=== PATIENT | female | born 1945 | race Caucasian/White ===

== ENCOUNTER 2017-04-07 15:08 | Inpatient (IN) ==
[2017-04-07] MEDS ORDERED: HYDROmorphone 2 MG/1 ML VIAL IV STA ×2 (16:05→17:33)
[2017-04-07] MEDS ORDERED: ONDANSETRON 4 MG/2 ML VIAL IV STA ×2 (16:05→17:33)
[2017-04-07] MEDS ORDERED: SODIUM CHLORIDE 0.9% 500 ML IV STA (16:05)
--- NOTE | 2017-04-07 16:42 | CT Report ---
Referring physician: Bulmaro Azar Exam: CT brain without contrast Date: 04/07/2017 Comparison: 08/18/2016 Reason: Headache Technique: Axial images of the head were obtained without the use of contrast. Total DLP was 1136.90 mGy*cm. Findings: No hydrocephalus or midline shift is present. There is no evidence of an acute infarction, recent intracranial hemorrhage or abnormal mass effect. Persistent cerebral atrophy and diffuse cerebral hypodensities. Benign hyperostosis frontalis interna. The mastoid air cells and visualized paranasal sinuses are clear. Impression: No acute intracranial abnormality is identified. Persistent atrophy and microvascular disease with benign hyperostosis frontalis interna. The CT exam was performed using one or more of the following dose reduction techniques: Automated exposure control and adjustment of the mA and/or kV according to patient size. PROCEDURE INTERPRETED AT [facility] DEPARTMENT OF RADIOLOGY Final Report Signed by: Dr. Savannah De Jesus
--- NOTE | 2017-04-07 16:46 | CT Report ---
Exam: CT cervical spine without contrast Date: 04/07/2017 Comparison: 08/07/2011 Reason: Neck pain, fall, neck trauma Technique: Axial images of the cervical spine were obtained without the use of contrast. Sagittal and coronal reformatted images were also acquired. Total DLP is 356.90 mGy*cm. Findings: The alignment the cervical spine is unremarkable with no fracture, dislocation, or definite spinal cord pathology. No acute findings at the lung apices. Sclerosis with osteophytes. At C2-C3, no neuroforaminal narrowing or spinal canal stenosis is identified. At C3-C4, no disc protrusion or spinal stenosis. Minimal bilateral foraminal stenosis. At C4-C5, no disc protrusion or spinal stenosis. Minimal right and moderate left foraminal stenosis. At C5-C6, no disc protrusion or spinal stenosis. Minimal bilateral foraminal stenosis. At C6-C7, osteophyte/disc complex which contacts the thecal sac. No spinal stenosis or foraminal stenosis. At C7-T1, no neuroforaminal narrowing or spinal canal stenosis is identified. Impression: No acute fracture identified. Multilevel DDD as above noted. This CT exam was performed using one or more of the following dose reduction techniques: Automatic exposure control, adjustment of the MA and/or KV according to patient size, or use of iterative reconstruction technique. PROCEDURE INTERPRETED AT [facility] DEPARTMENT OF RADIOLOGY Final Report Signed by: Dr. Savannah De Jesus
--- NOTE | 2017-04-07 16:52 | Emergency Department Note ---
Lorena Newby Rolonda, am scribing for, and in the presence of, Bulmaro Azar MD 16:42. Doe Newby Charles R, MD, personally performed the services described in this documentation, ascribed by Nela Carrillo in my presence, and it is both accurate and complete 652 . Arrival - Arrival ED Nursing Triage Note: pt reports she fell about 1100 this morning and was on floor for about 20 minutes before she was able to get up. pt reports she had pain and a small knot on her hip but that the right hip has continued to swell and she is having some pain in her right neck and has started having some blurry vision. denies loc. pt takes plavix. c collar placed on pt in triage. Mode of Arrival: Wheelchair Limitations: No Limitations Source: Patient, Old Records Reviewed, RN Notes Reviewed - History of Present Illness Onset (ago): hour(s) Consistency: constant Severity: moderate Severity scale (1-10): 4 <Bulmaro Azar - Last Filed: 04/07/17 17:22> <Haris Banks - Last Filed: 04/07/17 17:48> - Arrival Chief Complaint: Fall Stated Complaint: FALL,KNOT ON RIGHT HIP, VISION BLURRY Time Seen by Provider: 04/07/17 15:55 - History of Present Illness HPI Narrative: Pt is a 72 y/o female who presents to the ED via wheelchair with c/o taking a fall with an onset of this morning. Pt has a PMHx of Back/Neck problems and Musculoskeletal problems. Pt was placed in c-collar at time of triage. She states that she was ambulating to the living room using her walking cane, as usual, when she lost her balance resulting in her falling hitting the left side of her head. Pt confirms that she is on pain medication, has right hip pain that radiates to the groin due to falling, and neck pain but denies arm and head pain. No other pain/complaint in ED. (Nela Carrillo) Pt is a 72 y/o female who presents to the ED via wheelchair with c/o taking a fall with an onset of this morning. Pt has a PMHx of Back/Neck problems and Musculoskeletal problems. Pt was placed in c-collar at time of triage. She states that she was ambulating to the living room using her walking cane, as usual, when she lost her balance resulting in her falling hitting the left side of her head. Pt confirms that she is on pain medication, has right hip pain that radiates to the groin due to falling, and neck pain but denies arm and head pain. No other pain/complaint in ED. (Bulmaro Azar) Allergies/Adverse Reactions: Allergies Allergy/AdvReac Type Severity Reaction Status Date / Time Milk Containing Products Allergy Severe MAKES Verified 08/18/16 15:18 PATIENT SWELL Shrimp Allergy Severe VOMITTING Verified 08/18/16 15:18 Sulfa (Sulfonamide Allergy Intermediate RASH Verified 08/18/16 15:18 Antibiotics) sulfamethoxazole Allergy Intermediate RASH Verified 08/18/16 15:18 [From Bactrim] trimethoprim [From Bactrim] Allergy Intermediate RASH Verified 08/18/16 15:18 codeine AdvReac Intermediate Confusion Verified 08/18/16 15:18 Home Medications: Home Medications Medication Instructions Recorded Confirmed Type ALPRAZolam [Xanax] 0.5 mg PO TID 03/13/15 08/18/16 History Atorvastatin [Lipitor] 10 mg PO DAILY 03/13/15 08/18/16 History Clopidogrel [Plavix] 75 mg PO DAILY 03/13/15 08/18/16 History Dicyclomine Cap/Tab [Bentyl 10 mg PO QID 03/13/15 08/18/16 History Cap/Tab] Duloxetine HCl [Cymbalta] 60 mg PO BID 03/13/15 08/18/16 History Esomeprazole Magnesium [Nexium] 40 mg PO DAILY 03/13/15 08/18/16 History Furosemide Tab [Lasix Tab] 80 mg PO DAILY PRN 03/13/15 08/18/16 History Gabapentin Cap/Tab [Neurontin 600 mg PO QID 03/13/15 08/18/16 History Cap/Tab] Levothyroxine Tab [Synthroid Tab] 150 mcg PO DAILY@0700 03/13/15 08/18/16 History Losartan Potassium 50 mg PO DAILY 03/13/15 08/18/16 History Meclizine [Antivert] 25 mg PO TID 03/13/15 08/18/16 History Methocarbamol Tab [Robaxin Tab] 600 mg PO TID PRN 03/13/15 08/18/16 History Metoclopramide Tab [Reglan Tab] 10 mg PO Q6HR 03/13/15 08/18/16 History OXcarbazepine [Trileptal] 300 mg PO BID 03/13/15 08/18/16 History Tolterodine LA [Detrol LA] 4 mg PO DAILY PRN 03/13/15 08/18/16 History Zolpidem [Ambien] 10 mg PO BEDTIME 03/13/15 08/18/16 History oxyCODONE ER [OxyCONTIN] 20 mg PO Q12HR 03/13/15 08/18/16 History rOPINIRole [Requip] 0.5 mg PO BEDTIME PRN 03/13/15 08/18/16 History Cyanocobalamin Inj [Vitamin B12 1,000 mcg IM Q30D 05/01/16 08/18/16 History Inj] Review of System - Review of System 12 point system: reviewed and no additional remarkable complaints except as stated - Review of System Constitutional: Absent: chills, fever Respiratory: Absent: cough, respiratory distress Cardiovascular: Absent: chest pain Musculoskeletal: Present: neck pain, other (right hip pain that radiates down groin). Absent: arm pain, back pain Neurological: Absent: headache <Bulmaro Azar R - Last Filed: 04/07/17 17:22> Medical,Surgical,& Family Hx - Medical History Cardio: History of: Cardiac Dysrhythmia (LOW HR HX), Hypertension Psychological: History of: Anxiety Disorders, Depression Neurology: History of: Cerebral Hemorrhage, Migraine, TIA (2002) No history of: Seizures HEENT: History of: Eye Problem (Wears glasses), HEENT Problems (REMOVAL OF SKIN CA) Endocrine: History of: Dyslipidemia, Thyroid Disorder (Hypothyroid) Rheumatology: History of;: Rheumatological Problems Renal: History of: Renal Problems (Takes Detrol PRN) Gastrointestinal: History of: Diverticulitis/ Diverticulosis, GERD, Pancreatitis (2007), Polyps, GI Problems (DYSPHASIA/ IBS) Musculoskeletal: History of: Back/Neck Problems (perm nerve damage 2 disc in back; stenosis of spine; disease of facets), Degenerative Disk Disease, Herniated Disk, Osteoporosis, Musculoskeletal Problems (trigemenal neuralgia rt side of face 2003/ COSTOCHONDRITIS HX) Hematology: History of: Anemia Reproductive: History of: Breast Cancer (Adenocarcinoma with mastectomy bilaterally) Other: History of: Cancer (RT BREAST W MASTECTOMY 1969/ LEFT SIMPLE MASTECTOMY 1970), MRSA, Miscellaneous Medical Problems (HX OF CELLULITIS) No history of: Anesthesia Reactions - Surgical History Cardiac Surgeries: Sugical HX of: Cardiac Catheterization (Many years ago), Vascular Access Devices (MEDIPORT) Neurologic Surgeries: Surgical HX of: Cerebral Hemorrhage HEENT Surgeries: Surgical HX of: Eye Surgery (Catracts removed bilaterally) Abdominal Surgeries: Surgical HX of: Abdominal Surgery, Appendectomy, Cholecystectomy, Colonoscopy, EGD Reproductive Surgeries: Surgical HX of;: Breast Surgery (Mastectomy), Gynecologic Surgery, Hysterectomy Patient denies;: Genitourinary Surgery Orthopedic Surgeries: Surgical HX of;: Implanted Devices (for scs revision ; MRSA INFECTION 2013 FROM PAIN PUMP), Orthopedic Surgery, Total Knee Replacement (BOTH) - Family History Family History: Reports;: Family Cancer (Mother), Family Diabetes (G'mother), Family Heart Disease (Father), Family Hypertension (Father) - Social History Smoking Status: Never smoker <Bulmaro Azar - Last Filed: 04/07/17 17:22> Exam - General General appearance: alert, in no apparent distress - Head Head exam: Present: atraumatic, normocephalic - Eye Eye exam: Present: PERRL, EOMI - ENT ENT exam: Present: mucous membranes moist. Absent: mucous membranes dry - Neck Neck exam: Present: other (C-collar placed at time of triage) - Chest Chest inspection: Present: symmetric chest wall rise. Absent: tenderness - Respiratory Respiratory exam: Present: other (fentanyl patch) - Cardiovascular Cardiovascular exam: Present: regular rate, normal rhythm, normal heart sounds. Absent: bradycardia - Abdominal Exam Abdominal exam: Present: soft, normal bowel sounds. Absent: tenderness - Extremities Exam Extremities exam: Absent: normal inspection (massive bruise on right thigh that goes around to hip) - Back Exam Back exam: Present: full ROM. Absent: tenderness - Neurological Exam Neurological exam: Present: alert, oriented X3, CN II-XII intact - Psychiatric Psychiatric exam: Present: normal affect, normal mood - Skin Skin exam: Present: warm, dry, intact, normal color. Absent: rash <Bulmaro Azar - Last Filed: 04/07/17 17:22> Vital Signs: Vital Signs Temperature 98.7 F 04/07/17 15:14 Pulse Rate 93 H 04/07/17 15:14 Respiratory Rate 20 04/07/17 15:14 Blood Pressure 102/81 04/07/17 15:14 O2 Sat by Pulse Oximetry 97 04/07/17 15:14 Course - Consultations Time: 17:22 <DoeBulmaro Sangeeta - Last Filed: 04/07/17 17:22> <Haris Banks - Last Filed: 04/07/17 17:48> - Reevaluation(s) Reevaluation #1: Discussed with patient the fact that she has no fractures but does have evidence of pneumonia. For this reason she will be admitted for further evaluation and treatment (Haris Banks) - Consultations Consultation #1: Signed out to ER who will resume care of patient (DoeBulmaro Rutherford) Consultation #2: Discussed with the hospitalist service who will admit for further evaluation treatment. (Haris Banks) Results - Labs CBC & BMP: 04/07/17 16:50 <DoeBulmaro - Last Filed: 04/07/17 17:22> - Labs CBC & BMP: 04/07/17 16:50 04/07/17 16:50 - Diagnostic Findings Procedure: Chest x-ray: image reviewed by me, report reviewed by me (Notable for right upper lobe infiltrate and right-sided MediPort), CT: image reviewed by me, report reviewed by me (Head: No acute injury, cervical spine: Diffuse DJD but no evidence of fractures), X-ray: image reviewed by me, report reviewed by me, pending ( Right total knee without trauma, pelvis and right hip reveal DJD changes but no acute fracture) <Haris Banks - Last Filed: 04/07/17 17:48> - Labs Labs: I reviewed the laboratory noted the depressed hematocrit as well as the elevated white blood cell count (Haris Banks) Disposition <DoeBulmaro Rutherford - Last Filed: 04/07/17 17:22> Case discussed with: patient Time of Disposition: 17:48 <Haris Banks - Last Filed: 04/07/17 17:48> Clinical Impression: Right upper lobe pneumonia, Multiple contusions post fall Disposition: Still a Patient Condition: Stable
--- NOTE | 2017-04-07 17:08 | XRay Report ---
Portable chest Date: 04/07/2017 Clinical history: Shortness of breath Comparison: 06/13/2015 Technique: Portable AP sitting chest Findings: The heart is normal in size with stable right subclavian venous access catheter and left arm PICC line. Progressive parenchymal findings in the right upper lobe. Postoperative findings in the left axilla. Degenerative changes are noted. Impression: Progressive atelectasis/infiltration in the right upper lobe with stable venous access catheter and PICC line. PROCEDURE INTERPRETED AT [facility] DEPARTMENT OF RADIOLOGY Final Report Signed by: Dr. Savannah De Jesus
[2017-04-07] MEDS ORDERED: ONDANSETRON 4 MG/2 ML VIAL ONE (17:09)
[2017-04-07] MEDS ORDERED: HYDROmorphone 2 MG/1 ML VIAL ONE (17:09)
--- NOTE | 2017-04-07 17:11 | XRay Report ---
Exam: XR hip 2v w pelvis RT Date: 04/07/2017 4:09 PM Comparison: None Indication: Pelvic pain, right hip pain Technique:[AP pelvis with AP and frog-leg right hip] Findings: Postoperative findings in the pelvis. Joint spacing with sclerosis and osteophytes. No fracture or dislocation. Impression: Minimal to moderate right and minimal left DJD. No acute fracture or dislocation. PROCEDURE INTERPRETED AT [facility] DEPARTMENT OF RADIOLOGY Final Report Signed by: Dr. Savannah De Jesus
[2017-04-07 17:12] LABS: Basophils % 0.2 % (0.0-0.8); Eosinophils % 0.2 % (0.00-10.9); Hematocrit 29.4 VOL% (35.7-47.0); Hemoglobin 10.3 GM/DL (12.0-16.0); Immature Granulocytes % 0.6 %; Immature Granulocytes Absolute 0.07 #; Lymphocytes # 0.7 10*3/uL (1.4-4.0); Lymphocytes % 5.9 % (21.3-54.2); Mean Corpuscular Hemoglobin 31 PG (27-34); Mean Corpuscular Volume 89.6 FL (87-102); Mean Platelet Volume 9.2 FL (9.6-12.0); Monocytes # 1.5 10*3/uL (0.11-0.8); Monocytes % 12.9 % (1.7-12.7); Neutrophils # 9.3 10*3/uL (1.4-7.4); Neutrophils % 80.2 % (38.7-73.9); Platelet Count 307 T/CUMM (130-400); Red Blood Count 3.28 MC/CUMM (3.8-5.5); Red Cell Distribution Width 13.4 % (9.3-17.3); White Blood Count 11.6 T/CUMM (4-12)
--- NOTE | 2017-04-07 17:15 | XRay Report ---
Exam: XR femur RT Date: 04/07/2017 4:10 PM Comparison: None Indication: Right leg pain Technique:[AP and lateral right femur] Findings: Status post right total knee replacement. Right hip joint space narrowing with sclerosis and osteophytes. No fracture or dislocation. Impression: Right total knee replacement. Minimal to moderate DJD with no acute fracture or dislocation. PROCEDURE INTERPRETED AT [facility] DEPARTMENT OF RADIOLOGY Final Report Signed by: Dr. Savannah De Jesus
[2017-04-07 17:20] LABS: INR 1.1; PT Patient Result 11.6 SECS
[2017-04-07 17:32] LABS: Albumin 3.5 G/DL (3.4-5.0); Bilirubin,Total 0.5 MG/DL (0.2-1.0); Calcium 8.7 MG/DL (8.5-10.1); Osmolality,Calculated 262.8 MOS/KG (273-304); Potassium 4.1 MMOL/L (3.5-5.1); Total Protein 6.5 G/DL (6.4-8.3)
[2017-04-07] MEDS ORDERED: methylPREDNISolone SOD SUC 125 MG/2 ML VIAL IV STA (17:33)
[2017-04-07] MEDS ORDERED: ALBUTEROL/IPRATROPIUM 3 ML NEB RESP TX STA (17:33)
[2017-04-07] MEDS ORDERED: LEVOFLOXACIN INJ 750 MG in PREMIX 1 EACH IV STA (17:33)
[2017-04-07] MEDS ORDERED: methylPREDNISolone SOD SUC 125 MG/2 ML VIAL ONE (18:08)
[2017-04-07] MEDS ORDERED: LEVOFLOXACIN INJ 150 ML IV ONE (18:08)
--- NOTE | 2017-04-07 18:18 | EKG Report ---
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
[2017-04-07 18:36] LABS: Apearance,Urine CLEAR (Clear); Bilirubin,Urine Negative (Negative); Blood, Urine Small mg/dL (Negative); Glucose,Urine (UA) Negative (Negative); Ketones,Urine Negative (Negative); Mucus,Urine Occasional /LPF (Occasional); Nitrite,Urine Negative (Negative); Protein,Urine Negative; RBC,Urine 1 /HPF (0-4); Urine Color Yellow (Yellow); Urine Specific Gravity 1.015 (1.001-1.035); Urine Urobilinogen < 2.0 EU/DL (0.2-1.0); WBC,Urine 1 /HPF (0-6)
[2017-04-07 18:42] LABS: Barbiturates Screen,Urine Negative (Negative); Benzodiazepines Screen,Urine Positive (Negative); Cannabinoid Screen,Urine Negative (Negative); Opiate Screen,Urine Positive (Negative); Phencyclidine Screen,Urine Negative (Negative)
--- NOTE | 2017-04-07 19:09 | Hospitalist History & Physical ---
<Marlys Estrada - Last Filed: 04/07/17 18:38> Assessment and Plan - Time spent with patient Time spent with patient: Greater than 30 minutes (1) Fall Status: Acute Current Visit: Yes (2) Pneumonia Status: Acute Current Visit: Yes History of Present Illness Chief complaint: fell at home History of present illness: Ms. Rosenberg is a very pleasant 72 year old white female present to [facility] ED this afternoon for evaluation r/t she fell at home and was on the floor about 20 minutes and then was able to get up. the patient reported falling at home, denies hitting head. 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 ED presented; patient assessed: labs: WBC 11.6; H&H 10.3 & 29.4; PLT 307; Neut% 80.2; lymph % 5.9; [place]% 12.9; INR 1.1; PT 11.6; sodium 130; potassium 4.1; chloride 94; carbon dioxide 25; anion gap 15.1; BUN 22; Creatinine 1.30; Ca 8.7 ; AST 15; ALT 26; Alkaline Phos 97; urine negative; Urine Toxicology positive opiates and positive benzodiazepines; Head CT - no acute intracranial abnomality identified; persistent atrophy and microvascular disease with benign hyperostosis frontalis interna. xr femur - right - right total knee replacement noted; minimal to moderate DJD wiht no acute fracture or dislocation. CT cervical spine - no acute fracture identified; multilevel DDD as previous noted. Hip xray - minimal to moderate right and minimal left DJD; no acute fracture or dislocation. Chest xray - progressive atelectasis/infiltration in the right upper lobe with stable venous access catheter and PICC line. After discussing with Dr Rivera in ED and Dr Vázquez with Hospitalist we are in agreement that patient needs to be admitted for further evaluation. Home Medications Medication Instructions Recorded Confirmed Type ALPRAZolam [Xanax] 0.5 mg PO TID 03/13/15 08/18/16 History Atorvastatin [Lipitor] 10 mg PO DAILY 03/13/15 08/18/16 History Clopidogrel [Plavix] 75 mg PO DAILY 03/13/15 08/18/16 History Dicyclomine Cap/Tab [Bentyl 10 mg PO QID 03/13/15 08/18/16 History Cap/Tab] Duloxetine HCl [Cymbalta] 60 mg PO BID 03/13/15 08/18/16 History Esomeprazole Magnesium [Nexium] 40 mg PO DAILY 03/13/15 08/18/16 History Furosemide Tab [Lasix Tab] 80 mg PO DAILY PRN 03/13/15 08/18/16 History Gabapentin Cap/Tab [Neurontin 600 mg PO QID 03/13/15 08/18/16 History Cap/Tab] Levothyroxine Tab [Synthroid Tab] 150 mcg PO DAILY@0700 03/13/15 08/18/16 History Losartan Potassium 50 mg PO DAILY 03/13/15 08/18/16 History Meclizine [Antivert] 25 mg PO TID 03/13/15 08/18/16 History Methocarbamol Tab [Robaxin Tab] 600 mg PO TID PRN 03/13/15 08/18/16 History Metoclopramide Tab [Reglan Tab] 10 mg PO Q6HR 03/13/15 08/18/16 History OXcarbazepine [Trileptal] 300 mg PO BID 03/13/15 08/18/16 History Tolterodine LA [Detrol LA] 4 mg PO DAILY PRN 03/13/15 08/18/16 History Zolpidem [Ambien] 10 mg PO BEDTIME 03/13/15 08/18/16 History oxyCODONE ER [OxyCONTIN] 20 mg PO Q12HR 03/13/15 08/18/16 History rOPINIRole [Requip] 0.5 mg PO BEDTIME PRN 03/13/15 08/18/16 History Cyanocobalamin Inj [Vitamin B12 1,000 mcg IM Q30D 05/01/16 08/18/16 History Inj] Allergies Allergy/AdvReac Type Severity Reaction Status Date / Time Milk Containing Products Allergy Severe MAKES Verified 08/18/16 15:18 PATIENT SWELL Shrimp Allergy Severe VOMITTING Verified 08/18/16 15:18 Sulfa (Sulfonamide Allergy Intermediate RASH Verified 08/18/16 15:18 Antibiotics) sulfamethoxazole Allergy Intermediate RASH Verified 08/18/16 15:18 [From Bactrim] trimethoprim [From Bactrim] Allergy Intermediate RASH Verified 08/18/16 15:18 codeine AdvReac Intermediate Confusion Verified 08/18/16 15:18 Medical,Surgical,& Family Hx - Medical History Cardio: History of: Cardiac Dysrhythmia (LOW HR HX), Hypertension Psychological: History of: Anxiety Disorders, Depression Neurology: History of: Cerebral Hemorrhage, Migraine, TIA (2002) No history of: Seizures HEENT: History of: Eye Problem (Wears glasses), HEENT Problems (REMOVAL OF SKIN CA) Endocrine: History of: Dyslipidemia, Thyroid Disorder (Hypothyroid) Rheumatology: History of;: Rheumatological Problems Respiratory: History of: Bronchitis Renal: History of: Renal Problems (Takes Detrol PRN) Gastrointestinal: History of: Diverticulitis/ Diverticulosis, GERD, Pancreatitis (2007), Polyps, GI Problems (DYSPHASIA/ IBS) Musculoskeletal: History of: Back/Neck Problems (perm nerve damage 2 disc in back; stenosis of spine; disease of facets), Degenerative Disk Disease, Herniated Disk, Osteoporosis, Musculoskeletal Problems (trigemenal neuralgia rt side of face 2003/ COSTOCHONDRITIS HX) Hematology: History of: Anemia Reproductive: History of: Breast Cancer (Adenocarcinoma with mastectomy bilaterally) Other: History of: Cancer (RT BREAST W MASTECTOMY 1969/ LEFT SIMPLE MASTECTOMY 1970), MRSA, Miscellaneous Medical Problems (HX OF CELLULITIS) No history of: Anesthesia Reactions - Surgical History Cardiac Surgeries: Sugical HX of: Cardiac Catheterization (Many years ago), Vascular Access Devices (MEDIPORT) Neurologic Surgeries: Surgical HX of: Cerebral Hemorrhage HEENT Surgeries: Surgical HX of: Eye Surgery (Catracts removed bilaterally) Abdominal Surgeries: Surgical HX of: Abdominal Surgery, Appendectomy, Cholecystectomy, Colonoscopy, EGD Reproductive Surgeries: Surgical HX of;: Breast Surgery (Mastectomy), Gynecologic Surgery, Hysterectomy Patient denies;: Genitourinary Surgery Orthopedic Surgeries: Surgical HX of;: Implanted Devices (for scs revision ; MRSA INFECTION 2013 FROM PAIN PUMP), Orthopedic Surgery, Total Knee Replacement (BOTH) - Family History Family History: Reports;: Family Cancer (Mother), Family Diabetes (G'mother), Family Heart Disease (Father), Family Hypertension (Father) - Social History Smoking Status: Never smoker Frequency of Alcohol Use: None Type of Drug Use: None Marital Status: Lives With:: Spouse Review of systems: ROS completed and pertinent positive and negatives in HPI. Exam - Constitutional Vitals: Period Temp Pulse Resp BP Sys/Avery Pulse Ox Last 24 Hr 98.7 F-98.7 F 69-93 18-20 102-102/81-81 97-100 General appearance: over weight - Head Head exam: Present: normal inspection - Eye Eye exam: Present: EOMI Pupils: Present: CLAUDIA - Neck Neck exam: Present: normal inspection - Respiratory Respiratory exam: Present: clear to auscultation bilaterally - Cardiovascular Cardiovascular exam: Present: regular rate and rhythm - GI/Abdominal GI/Abdominal exam: Present: normal bowel sounds, soft. Absent: guarding, tenderness - Extremities Exam Extremities exam: Present: full ROM - Expanded Left Upper Extremity Forearm wrist exam: Present: swelling (swelling r/t bilateral mastectomies; right arm is not as significant) - Neurological Exam Neurological exam: Present: alert, oriented X3 - Skin Skin exam: Present: normal color, warm, dry, other (hematoma to left upper thigh ) Results - Labs CBC & BMP: 04/07/17 16:50 04/07/17 16:50 Lab Results: I have reviewed the past 24 hour labs - Diagnostic Findings Procedure: Chest x-ray: report reviewed by me (progressive atelectasis/ infiltration in the right upper lobe with stable venous access catheter and PICC line), CT: report reviewed by me (cervivcal - no acute fracture identified) , X-ray: report reviewed by me (Hip - right hip - minimal to moderate right and minimal left DJD; no acute fracture or dislocation; right leg xray - right total knee replacement; minimal to moderate DJD with no acute fracture or dislocation) <Brian Vázquez - Last Filed: 04/07/17 19:45> History of Present Illness History of present illness: Ms. Rosenberg is a 72 year old female Exam - Constitutional Vitals: Period Temp Pulse Resp BP Sys/Avery Pulse Ox Last 24 Hr 98.7 F-98.7 F 67-93 16-20 102-127/45-81 96-100 Results - Labs CBC & BMP: 04/07/17 16:50 04/07/17 16:50
[2017-04-07] MEDS ORDERED: ACETAMINOPHEN 325 MG TABLET PO PRN (19:20)
[2017-04-07] MEDS ORDERED: guaiFENesin/DM ER 600-30 MG TABLET PO PRN (19:20)
[2017-04-07] MEDS ORDERED: PROMETHAZINE 25 MG/1 ML VIAL IM PRN (19:20)
[2017-04-07] MEDS ORDERED: DOCUSATE SODIUM 100 MG CAPSULE PO PRN (19:20)
[2017-04-07] MEDS ORDERED: SODIUM CHLORIDE 0.9% 1,000 ML IV SCH (20:00)
[2017-04-07] MEDS: ONDANSETRON 4 MG/2 ML VIAL IV PRN (22:00)
[2017-04-08] MEDS: oxyCODONE/ACETAMINOPHEN 5-325 MG TABLET PO SCH ×4 (01:31→22:46)
[2017-04-08] MEDS: ALBUTEROL/IPRATROPIUM 3 ML NEB RESP TX SCH ×4 (01:41→19:03)
[2017-04-08] MEDS: ONDANSETRON 4 MG/2 ML VIAL IV PRN (04:23)
[2017-04-08] MEDS: SODIUM CHLORIDE 0.9% 1,000 ML IV SCH (05:10)
[2017-04-08] MEDS: ALPRAZolam 0.5 MG TABLET PO SCH ×4 (05:15→22:47)
[2017-04-08 05:42] LABS: Hematocrit 28.7 VOL% (35.7-47.0); Hemoglobin 10.1 GM/DL (12.0-16.0); Immature Granulocytes % 0.8 %; Immature Granulocytes Absolute 0.06 #; Lymphocytes # 0.6 10*3/uL (1.4-4.0); Lymphocytes % 7.6 % (21.3-54.2); Mean Corpuscular HGB Conc 35.2 GM/DL (32-36); Mean Corpuscular Hemoglobin 31 PG (27-34); Mean Corpuscular Volume 89.1 FL (87-102); Mean Platelet Volume 9.8 FL (9.6-12.0); Monocytes # 0.9 10*3/uL (0.11-0.8); Monocytes % 12.3 % (1.7-12.7); Neutrophils # 5.9 10*3/uL (1.4-7.4); Neutrophils % 79.3 % (38.7-73.9); Platelet Count 344 T/CUMM (130-400); Red Blood Count 3.22 MC/CUMM (3.8-5.5); Red Cell Distribution Width 13.3 % (9.3-17.3); White Blood Count 7.5 T/CUMM (4-12)
[2017-04-08 05:47] LABS: INR 1.1; PT Patient Result 11.2 SECS; Partial Thromboplastin Time 28.2 SECS (0-40)
[2017-04-08 06:02] LABS: Apearance,Urine CLEAR (Clear); Bacteria,Urine Occasional /HPF (Few); Bilirubin,Urine Negative (Negative); Blood, Urine Small mg/dL (Negative); Glucose,Urine (UA) Negative (Negative); Ketones,Urine 20 mg/dL (Negative); Mucus,Urine Occasional /LPF (Occasional); Nitrite,Urine Negative (Negative); Protein,Urine Negative; RBC,Urine 2 /HPF (0-4); Squamous Epithelial Cell,Urine Occasional /HPF (0-10); Urine Color Yellow (Yellow); Urine Specific Gravity 1.013 (1.001-1.035); Urine Urobilinogen < 2.0 EU/DL (0.2-1.0); WBC,Urine 3 /HPF (0-6)
--- NOTE | 2017-04-08 06:03 | CT Report ---
Exam: CT scan of brain without contrast Date: 04/08/2017 Indication: Altered level consciousness transient alteration of awareness possible CVA Comparison: 04/07/2017 Patient's classification: Inpatient Technical: Images were obtained from the skull base to the vertex without the use of intravenous contrast. Dose reduction was performed with decreasing kv and mA and automated exposure Total DLP: 1081.1 mGy*cm Findings: Study was initially reviewed by [facility]. Small vessel ischemic changes are present in the periventricular subcortical white matter regions. The calvarium reveals hyperostosis frontalis interna changes present. The ventricles are slightly prominent. The brainstem and cerebellum reveal no acute findings. Paranasal sinuses globes and sella mastoids are intact. When compared to the prior study there is slight decreased attenuation in the frontal lobe regions left slightly greater than right Impression: 1. Small vessel ischemic changes. 2. No obvious acute hemorrhage or infarction if further evaluation with MRI is recommended. Infarction involving the frontal lobe regions cannot be totally excluded with subtle decrease in attenuation in the frontal lobe regions left more than right. PROCEDURE INTERPRETED AT [facility] DEPARTMENT OF RADIOLOGY Final Report Signed by: Dr. Jamel Moon
[2017-04-08 06:15] LABS: Albumin 3.4 G/DL (3.4-5.0); Bilirubin,Total 0.5 MG/DL (0.2-1.0); Calcium 8.9 MG/DL (8.5-10.1); Osmolality,Calculated 260.9 MOS/KG (273-304); Potassium 4.2 MMOL/L (3.5-5.1); Total Protein 6.3 G/DL (6.4-8.3)
[2017-04-08] MEDS: PANTOPRAZOLE 40 MG TABLET PO SCH (08:28)
--- NOTE | 2017-04-08 08:59 | XRay Report ---
History: Shortness of breath Date: 04/08/2017 Study: Chest x-ray AP portable Comparison exam: 04/07/2017 The left PICC line and right subclavian Mediport-type catheter are stable in position. The cardiomediastinal silhouette is unchanged. The pulmonary vasculature is not engorged. There is no gross pleural effusion. There is some mild platelike scar or subsegmental atelectasis in the right suprahilar region, though there is improved aeration in the right upper lung compared to the previous study. Surgical clips overlie the left axilla. Osseous structures are unchanged. Impression: Improved aeration in the right upper lung compared to the previous study. Otherwise unchanged PROCEDURE INTERPRETED AT [facility] DEPARTMENT OF RADIOLOGY Final Report Signed by: Dr. Cordelia Grewal
[2017-04-08] MEDS ORDERED: ALPRAZolam 0.5 MG TABLET PO SCH (09:00)
[2017-04-08] MEDS ORDERED: rOPINIRole 0.25 MG TABLET PO PRN (09:34)
[2017-04-08] MEDS ORDERED: PROMETHAZINE 25 MG TABLET PO PRN (09:34)
[2017-04-08] MEDS ORDERED: TOLTERODINE LA 4 MG CAPSULE PO PRN (09:34)
[2017-04-08] MEDS ORDERED: fentaNYL 75 MCG/HR PATCH TRANSDERM SCH (10:00)
--- NOTE | 2017-04-08 10:23 | Hospitalist Progress Note ---
Assessment and Plan (1) Fall Status: Acute Assessment and plan: The patient has sustained a fall prior to ED presentation; which was her primary reason for seeking care. We will consult physical therapy and Occupational Therapy to evaluate and assist during the clinical encounter Current Visit: Yes (2) Pneumonia Status: Acute Assessment and plan: Continue empiric antibiotics, and inhaled bronchodilators as previously ordered. Current Visit: Yes Hospitalist: Subjective Interval history: Patient seen and examined; chart reviewed. No significant overnight events reported. Exam - Constitutional Vitals: Period Temp Pulse Resp BP Sys/Avery Pulse Ox Last 24 Hr 98.1 F-99.3 F 67-103 16-22 102-153/45-81 96-100 General appearance: normal weight, no acute distress - Head Head exam: Present: normal inspection, normocephalic, atraumatic - Eye Eye exam: Present: EOMI, conjunctival injection Pupils: Present: CLAUDIA, normal accommodation - ENT ENT exam: Present: normal exam, normal external ear exam, normal oropharynx - Neck Neck exam: Present: normal inspection. Absent: lymphadenopathy, meningismus, tenderness, thyromegaly - Respiratory Respiratory exam: Present: clear to auscultation bilaterally. Absent: rales, rhonchi, stridor, wheezes - Cardiovascular Cardiovascular exam: Present: bradycardia, regular rate and rhythm. Absent: carotid bruit, diastolic murmur, gallop, JVD, rubs, systolic murmur - GI/Abdominal GI/Abdominal exam: Present: normal bowel sounds, soft - Extremities Exam Extremities exam: Present: other (Gross discoloration to right hip) - Back Exam Back exam: Present: normal inspection - Neurological Exam Neurological exam: Present: alert, oriented X3, CN II-XII intact - Psychiatric Psychiatric exam: Present: normal affect, normal mood - Skin Skin exam: Present: normal color, warm, dry Results - Labs CBC & BMP: 04/08/17 04:25 04/08/17 04:25 Lab Results: I have reviewed the past 24 hour labs Quality Measures - Stroke Symptom Onset Unknown: No
[2017-04-08] MEDS: DULoxetine 30 MG CAPSULE PO SCH ×2 (10:29→22:46)
[2017-04-08] MEDS: CLOPIDOGREL 75 MG TABLET PO SCH (10:30)
[2017-04-08] MEDS: LINACLOTIDE 145 MCG CAPSULE PO SCH (10:30)
[2017-04-08] MEDS: OXcarbazepine 300 MG TABLET PO SCH ×2 (14:35→22:47)
[2017-04-08] MEDS: HYDROmorphone 2 MG/1 ML VIAL IV PRN (19:39)
--- NOTE | 2017-04-08 21:18 | Magnetic Resonance Report ---
Exam: MR head/brain w and wo con Date: 04/08/2017 6:12 PM Comparison: CT brain 04/08/2017 Indication: Fall, head injury, delirium, suspected infarction on CT Technique:[Multiple acquisitions were obtained including sagittal T1 scans before and after injection of 20 cc of Dotarem, coronal T1 with contrast and FLAIR, and axial ADC, diffusion, FLAIR, T2, GRE, and T1 scans before and after the injection contrast. Scans were obtained on a 1.5 Laisha magnet.] Findings: Unfortunately the scans are degraded by motion artifact with scans repeated. The ventricles remain normal in size with no midline displacement. The pituitary has a normal appearance and the cerebellar tonsils are normal in their location. No acute infarction is identified on the diffusion scans. There is no evidence of hemorrhage acute hemorrhage. Small black dots in the right frontoparietal convexity location. Diffuse atrophy and FLAIR/T2 hyperintensities. 2.9 mm focal asymmetric area of dural enhancement in the right frontal convexity location. No acute findings in the paranasal sinuses, orbits, temporal bones, [place], or venous sinuses. Impression: No acute infarction is identified. Small hypointensities on the GRE scans which can be seen with prior remote hemorrhage, cerebral amyloid, etc. 2.9 mm possible meningioma in the right frontal convexity location. Short-term follow-up MRI may be helpful for further evaluation of this very small finding. Cerebral atrophy and minimal microvascular disease. PROCEDURE INTERPRETED AT [facility] DEPARTMENT OF RADIOLOGY Final Report Signed by: Dr. Savannah De Jesus
[2017-04-08] MEDS: ZALEPLON 5 MG CAPSULE PO SCH (22:47)
[2017-04-08] MEDS: LEVOFLOXACIN INJ 500 MG in PREMIX 1 EACH IV SCH (22:49)
[2017-04-09] MEDS: ALBUTEROL/IPRATROPIUM 3 ML NEB RESP TX SCH ×4 (00:18→21:21)
[2017-04-09] MEDS: HYDROmorphone 2 MG/1 ML VIAL IV PRN ×3 (02:26→10:33)
[2017-04-09 05:05] LABS: Basophils % 0.2 % (0.0-0.8); Hematocrit 28.6 VOL% (35.7-47.0); Hemoglobin 9.6 GM/DL (12.0-16.0); Immature Granulocytes % 0.4 %; Immature Granulocytes Absolute 0.04 #; Lymphocytes # 0.9 10*3/uL (1.4-4.0); Mean Corpuscular HGB Conc 33.6 GM/DL (32-36); Mean Corpuscular Hemoglobin 31 PG (27-34); Mean Corpuscular Volume 92.6 FL (87-102); Mean Platelet Volume 9.4 FL (9.6-12.0); Monocytes # 1.7 10*3/uL (0.11-0.8); Monocytes % 15.7 % (1.7-12.7); Neutrophils # 8.3 10*3/uL (1.4-7.4); Neutrophils % 75.7 % (38.7-73.9); Platelet Count 323 T/CUMM (130-400); Red Blood Count 3.09 MC/CUMM (3.8-5.5); Red Cell Distribution Width 13.9 % (9.3-17.3)
[2017-04-09 05:28] LABS: Band Neutrophils 1 % (0-10); Lymphocytes 6 % (20-55); Segmented Neutrophils 77 % (50-85); Total Cells Counted 100
[2017-04-09 05:29] LABS: Hypochromasia Slight; Microcytosis Slight
[2017-04-09 05:30] LABS: Platelet Estimate Normal
[2017-04-09] MEDS: SODIUM CHLORIDE 0.9% 1,000 ML IV SCH (05:31)
[2017-04-09 05:43] LABS: Albumin 3.4 G/DL (3.4-5.0); Bilirubin,Total 0.6 MG/DL (0.2-1.0); Calcium 8.6 MG/DL (8.5-10.1); Magnesium 2.1 MG/DL (1.8-2.4); Osmolality,Calculated 271.1 MOS/KG (273-304); Phosphorous 4.5 MG/DL (2.5-4.9); Potassium 4.4 MMOL/L (3.5-5.1); Total Protein 6.5 G/DL (6.4-8.3)
[2017-04-09] MEDS ORDERED: LEVOTHYROXINE 137 MCG TABLET PO SCH (07:00)
[2017-04-09] MEDS ORDERED: DULoxetine 30 MG CAPSULE PO SCH (09:20)
--- NOTE | 2017-04-09 09:26 | Pain Management Consult Note ---
Assessment and Plan (1) SOIL SURVEYOR anomaly Status: Acute Assessment and plan: Sxs have worsened and progressed since admission. No evidence of withdrawl or infection. No acute bleed or significant structural abnormalities on successive CT head other than slight worsening of attenuation frontal lobes indicating possible TBI although she denies fall. F/U MRI brain again non revealing. She was on higher dose Trileptal and Neurontin so coverage with Keppra by Dr. Vázquez makes good sense given her tremors and hyperpathia. Neurochecks are ordered. Neurology has been consulted. Speech and though processes as well as command following indicate cortical, possible frontal lobe issues. Inability to swallow indicates lower brain functions involved. Maintain current Duragesic for comfort and to avoid clouding the clinical picture with withdrawal. Dilaudid IV appropriate as there are no signs of increased ICP. Supportive care unless clinical deterioration warrants otherwise. Current Visit: Yes History of Present Illness Chief complaint: fall, altered mental staus History of present illness: Ms. Rosenberg is a 72 year old female known to us with chronic L/S complaints and multiple MRSA episodes precluding further pain implants and injections being managed on higher dose narcotics and membrane stabilizers. She fel at home and later sustained blurred vision eventually progressing to dysphasia and UE contractures with whole body hyperpathia and inability to fully follow commands. She has tremors worrisome for partial seizure, denies head injury and LOC. No longer able to take po meds. Dscussed with her daughter. Home Medications Medication Instructions Recorded Confirmed Type ALPRAZolam [Xanax] 0.5 mg PO TID 03/13/15 04/08/17 History Atorvastatin [Lipitor] 10 mg PO DAILY 03/13/15 04/08/17 History Clopidogrel [Plavix] 75 mg PO DAILY 03/13/15 04/08/17 History Dicyclomine Cap/Tab [Bentyl 10 mg PO QID 03/13/15 04/08/17 History Cap/Tab] Duloxetine HCl [Cymbalta] 120 mg PO BID 03/13/15 04/08/17 History Esomeprazole Magnesium [Nexium] 40 mg PO DAILY 03/13/15 04/08/17 History Furosemide Tab [Lasix Tab] 40 mg PO BID PRN 03/13/15 04/08/17 History Gabapentin Cap/Tab [Neurontin 600 mg PO QID 03/13/15 04/08/17 History Cap/Tab] Losartan Potassium 50 mg PO DAILY 03/13/15 04/08/17 History Methocarbamol Tab [Robaxin Tab] 1,000 mg PO TID PRN 03/13/15 04/08/17 History OXcarbazepine [Trileptal] 300 mg PO TID 03/13/15 04/08/17 History Tolterodine LA [Detrol LA] 4 mg PO DAILY PRN 03/13/15 04/08/17 History Zolpidem [Ambien] 10 mg PO BEDTIME 03/13/15 04/08/17 History rOPINIRole [Requip] 0.5 mg PO BEDTIME PRN 03/13/15 04/08/17 History Cyanocobalamin Inj [Vitamin B12 1,000 mcg IM Q30D 05/01/16 04/08/17 History Inj] Levothyroxine Tab [Synthroid Tab] 137 mcg PO DAILY@0700 04/08/17 04/08/17 History Linaclotide [Linzess] 290 mcg PO DAILY 04/08/17 04/08/17 History Meclizine HCl 25 mg PO TID PRN 04/08/17 04/08/17 History Mv,Iron,Mins/Folic Acid/Biotin 1 each PO DAILY 04/08/17 04/08/17 History [Hair Formula Tablet] Promethazine HCl 25 mg PO DAILY PRN 04/08/17 04/08/17 History fentaNYL [Fentanyl 75 mcg/hr Patch] 1 patch TRANSDERM Q3DAY 04/08/17 04/08/17 History oxyCODONE/ACETAMINOPHEN 5-325 2 tablet PO TID 04/08/17 04/08/17 History [Percocet 5-325] Allergies Allergy/AdvReac Type Severity Reaction Status Date / Time Milk Containing Products Allergy Severe MAKES Verified 08/18/16 15:18 PATIENT SWELL Shrimp Allergy Severe VOMITTING Verified 08/18/16 15:18 Sulfa (Sulfonamide Allergy Intermediate RASH Verified 08/18/16 15:18 Antibiotics) sulfamethoxazole Allergy Intermediate RASH Verified 08/18/16 15:18 [From Bactrim] trimethoprim [From Bactrim] Allergy Intermediate RASH Verified 08/18/16 15:18 codeine AdvReac Intermediate Confusion Verified 08/18/16 15:18 Medical,Surgical,& Family Hx - Medical History Cardio: History of: Cardiac Dysrhythmia (LOW HR HX), Hypertension Psychological: History of: Anxiety Disorders, Depression No history of: ADHD, Behavior Problems, Bipolar Disorder, Previous Suicide Attempt, Psychiatric/Substance Abuse Tx, Schizophrenia, Violent Behavior, Psychiatric Problems Neurology: History of: Cerebral Hemorrhage, Migraine, TIA (2002) No history of: Seizures HEENT: History of: Eye Problem (Wears glasses), HEENT Problems (REMOVAL OF SKIN CA) Endocrine: History of: Dyslipidemia, Thyroid Disorder (Hypothyroid) Rheumatology: History of;: Rheumatological Problems Respiratory: History of: Bronchitis Renal: History of: Renal Problems (Takes Detrol PRN) Gastrointestinal: History of: Diverticulitis/ Diverticulosis, GERD, Pancreatitis (2007), Polyps, GI Problems (DYSPHASIA/ IBS) Musculoskeletal: History of: Back/Neck Problems (perm nerve damage 2 disc in back; stenosis of spine; disease of facets), Degenerative Disk Disease, Herniated Disk, Osteoporosis, Musculoskeletal Problems (trigemenal neuralgia rt side of face 2003/ COSTOCHONDRITIS HX) Hematology: History of: Anemia Reproductive: History of: Breast Cancer (Adenocarcinoma with mastectomy bilaterally) Other: History of: Cancer (RT BREAST W MASTECTOMY 1969/ LEFT SIMPLE MASTECTOMY 1970), MRSA, Miscellaneous Medical Problems (HX OF CELLULITIS) No history of: Anesthesia Reactions - Surgical History Cardiac Surgeries: Sugical HX of: Cardiac Catheterization (Many years ago), Vascular Access Devices (MEDIPORT) Neurologic Surgeries: Surgical HX of: Cerebral Hemorrhage HEENT Surgeries: Surgical HX of: Eye Surgery (Catracts removed bilaterally) Abdominal Surgeries: Surgical HX of: Abdominal Surgery, Appendectomy, Cholecystectomy, Colonoscopy, EGD Reproductive Surgeries: Surgical HX of;: Breast Surgery (Mastectomy), Gynecologic Surgery, Hysterectomy Patient denies;: Genitourinary Surgery Orthopedic Surgeries: Surgical HX of;: Implanted Devices (for scs revision ; MRSA INFECTION 2013 FROM PAIN PUMP), Orthopedic Surgery, Total Knee Replacement (BOTH) - Family History Family History: Reports;: Family Cancer (Mother), Family Diabetes ([place]), Family Heart Disease (Father), Family Hypertension (Father) - Social History Smoking Status: Never smoker Frequency of Alcohol Use: None Type of Drug Use: None Quality Measures - Stroke Symptom Onset Unknown: No Exam - Constitutional Vitals: Period Temp Pulse Resp BP Sys/Avery Pulse Ox Last 24 Hr 97.2 F-98.7 F 90-115 18-20 133-158/73-83 97-100 Results - Labs CBC & BMP: 04/09/17 04:17 04/09/17 04:17
--- NOTE | 2017-04-09 10:12 | Hospitalist Progress Note ---
<Marlys Estrada - Last Filed: 04/09/17 10:07> Assessment and Plan - Time spent with patient Time spent with patient: Less than 30 minutes (1) Fall Status: Acute Assessment and plan: 04/09/17 FALL: Patient is slightly confused, family reports she is making occasionally random statements that are not making any sense. MRI was done 04/08/17 No acute infarction; small hypointensitis on the GRE scans which can be seen with prior remote hemorrhage cerebral amyloid etc. 2.9 mm possible meningioma in the right frontal convexity location, short-term follow-up MRI may be helpful for further evaluation of this very small finding, cerebral atrophy and minimal microvascular disease. Pneumonia: Blood culture: Waiting on final culture results WBCs 11.0; Urine: clear yellow and negative nitrate; trace leukocytes. Continue antibiotics and inhaled bronchodilators as previously Pain: Generalized pain: Dr. Mcconnell consulted; and note reviewed; He agrees with Dr Vázquez plan and will maintain current duragesic for comfort and to avoid clouding the clinical picture with withdrawyl; Dilaudid IV appropriate as there are no signs of increase ICP. Current Visit: Yes (2) Pneumonia Status: Acute Current Visit: Yes Hospitalist: Subjective Interval history: 04/09/17 Ms Rosenberg is alert, oriented to person but confused to place; family at bedside verbalized that she has been more confused this morning "she will just say something random, such as "Dr Mcconnell has gone to [place]" . She complains of pain all over. Exam - Constitutional Vitals: Period Temp Pulse Resp BP Sys/Avery Pulse Ox Last 24 Hr 97.2 F-98.7 F 90-115 18-20 133-158/73-83 97-100 General appearance: normal weight - Head Head exam: Present: normal inspection - Eye Eye exam: Present: EOMI Pupils: Present: CLAUDIA - Neck Neck exam: Present: normal inspection - Respiratory Respiratory exam: Present: clear to auscultation bilaterally - Cardiovascular Cardiovascular exam: Present: regular rate and rhythm, tachycardia - GI/Abdominal GI/Abdominal exam: Present: normal bowel sounds, soft. Absent: guarding, rebound - Extremities Exam Extremities exam: Present: other (right hip discoloration r/t HX of fall at home ) - Neurological Exam Neurological exam: Present: alert, other (oriented to self; but not oriented to place; ) - Psychiatric Psychiatric exam: Present: normal affect - Skin Skin exam: Present: normal color, warm, dry Results - Labs CBC & BMP: 04/09/17 04:17 04/09/17 04:17 Lab Results: I have reviewed the past 24 hour labs - Diagnostic Findings Procedure: MRI: report reviewed by me (No aucte infarction; small hypointensities on the GRE scan which can be seen with prior remote hemorrage, cerebral amyloid, etc. 2.9 mm possible meningioma in the [facility] frontal convexity location. short-term follow-up MRI may be helpful for further evaluation; cerebral atrophy and minimal microvascular disease.) Quality Measures - Stroke Symptom Onset Unknown: No <Brian Vázquez - Last Filed: 04/09/17 13:39> Exam - Constitutional Vitals: Period Temp Pulse Resp BP Sys/Avery Pulse Ox Last 24 Hr 96.7 F-98.7 F 90-132 18-20 143-177/67-83 97-100 Results - Labs CBC & BMP: 04/09/17 04:17 04/09/17 04:17
--- NOTE | 2017-04-09 11:19 | Infectious Disease Consult ---
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 She may have had a stroke. Currently there is no evidence of infectious disease - no cellulitis of the right upper extremity contrary to the concern of the patient's sister. The wound to the abdomen from previous device infection has completely healed. I am not convinced she has pneumonia. Recommendations: I think antibiotic treatment is not indicated at this time. Thank you very much for the consult. Call again as needed. Discussed with patient's sister at bedside. Current Visit: Yes History of Present Illness Chief complaint: History of an infected implanted device, redness to right arm History of present illness: Ms. Rosenberg is a 72 year old female was almost 2 years ago. She had infection of a pain pump and splinted into her abdomen. Infection was with staph aureus. This was July 2015. Since then I really have not seen the patient. Apparently she has not had anymore implanted devices since then and according to her sister there has been no more significant infectious problems since then. She is on enormous amounts of analgesic medications for chronic pain and came into the hospital after she fell and had altered mental state. The sister felt that there was some redness to the right arm yesterday and was concerned about cellulitis. She has not chronic lymphedema of the right arm since having mastectomy many years ago for breast cancer. The patient apparently has not had fever. She is been quite tremulous and in severe generalized pain for unclear reasons. Home Medications Medication Instructions Recorded Confirmed Type ALPRAZolam [Xanax] 0.5 mg PO TID 03/13/15 04/08/17 History Atorvastatin [Lipitor] 10 mg PO DAILY 03/13/15 04/08/17 History Clopidogrel [Plavix] 75 mg PO DAILY 03/13/15 04/08/17 History Dicyclomine Cap/Tab [Bentyl 10 mg PO QID 03/13/15 04/08/17 History Cap/Tab] Duloxetine HCl [Cymbalta] 120 mg PO BID 03/13/15 04/08/17 History Esomeprazole Magnesium [Nexium] 40 mg PO DAILY 03/13/15 04/08/17 History Furosemide Tab [Lasix Tab] 40 mg PO BID PRN 03/13/15 04/08/17 History Gabapentin Cap/Tab [Neurontin 600 mg PO QID 03/13/15 04/08/17 History Cap/Tab] Losartan Potassium 50 mg PO DAILY 03/13/15 04/08/17 History Methocarbamol Tab [Robaxin Tab] 1,000 mg PO TID PRN 03/13/15 04/08/17 History OXcarbazepine [Trileptal] 300 mg PO TID 03/13/15 04/08/17 History Tolterodine LA [Detrol LA] 4 mg PO DAILY PRN 03/13/15 04/08/17 History Zolpidem [Ambien] 10 mg PO BEDTIME 03/13/15 04/08/17 History rOPINIRole [Requip] 0.5 mg PO BEDTIME PRN 03/13/15 04/08/17 History Cyanocobalamin Inj [Vitamin B12 1,000 mcg IM Q30D 05/01/16 04/08/17 History Inj] Levothyroxine Tab [Synthroid Tab] 137 mcg PO DAILY@0700 04/08/17 04/08/17 History Linaclotide [Linzess] 290 mcg PO DAILY 04/08/17 04/08/17 History Meclizine HCl 25 mg PO TID PRN 04/08/17 04/08/17 History Mv,Iron,Mins/Folic Acid/Biotin 1 each PO DAILY 04/08/17 04/08/17 History [Hair Formula Tablet] Promethazine HCl 25 mg PO DAILY PRN 04/08/17 04/08/17 History fentaNYL [Fentanyl 75 mcg/hr Patch] 1 patch TRANSDERM Q3DAY 04/08/17 04/08/17 History oxyCODONE/ACETAMINOPHEN 5-325 2 tablet PO TID 04/08/17 04/08/17 History [Percocet 5-325] Allergies Allergy/AdvReac Type Severity Reaction Status Date / Time Milk Containing Products Allergy Severe MAKES Verified 08/18/16 15:18 PATIENT SWELL Shrimp Allergy Severe VOMITTING Verified 08/18/16 15:18 Sulfa (Sulfonamide Allergy Intermediate RASH Verified 08/18/16 15:18 Antibiotics) sulfamethoxazole Allergy Intermediate RASH Verified 08/18/16 15:18 [From Bactrim] trimethoprim [From Bactrim] Allergy Intermediate RASH Verified 08/18/16 15:18 codeine AdvReac Intermediate Confusion Verified 08/18/16 15:18 ROS unobtainable: due to mental status Medical,Surgical,& Family Hx - Medical History Cardio: History of: Cardiac Dysrhythmia (LOW HR HX), Hypertension Psychological: History of: Anxiety Disorders, Depression No history of: ADHD, Behavior Problems, Bipolar Disorder, Previous Suicide Attempt, Psychiatric/Substance Abuse Tx, Schizophrenia, Violent Behavior, Psychiatric Problems Neurology: History of: Cerebral Hemorrhage, Migraine, TIA (2002) No history of: Seizures HEENT: History of: Eye Problem (Wears glasses), HEENT Problems (REMOVAL OF SKIN CA) Endocrine: History of: Dyslipidemia, Thyroid Disorder (Hypothyroid) Rheumatology: History of;: Rheumatological Problems Respiratory: History of: Bronchitis Renal: History of: Renal Problems (Takes Detrol PRN) Gastrointestinal: History of: Diverticulitis/ Diverticulosis, GERD, Pancreatitis (2007), Polyps, GI Problems (DYSPHASIA/ IBS) Musculoskeletal: History of: Back/Neck Problems (perm nerve damage 2 disc in back; stenosis of spine; disease of facets), Degenerative Disk Disease, Herniated Disk, Osteoporosis, Musculoskeletal Problems (trigemenal neuralgia rt side of face 2003/ COSTOCHONDRITIS HX) Hematology: History of: Anemia Reproductive: History of: Breast Cancer (Adenocarcinoma with mastectomy bilaterally) Other: History of: Cancer (RT BREAST W MASTECTOMY 1969/ LEFT SIMPLE MASTECTOMY 1970), MRSA, Miscellaneous Medical Problems (HX OF CELLULITIS) No history of: Anesthesia Reactions - Surgical History Cardiac Surgeries: Sugical HX of: Cardiac Catheterization (Many years ago), Vascular Access Devices (MEDIPORT) Neurologic Surgeries: Surgical HX of: Cerebral Hemorrhage HEENT Surgeries: Surgical HX of: Eye Surgery (Catracts removed bilaterally) Abdominal Surgeries: Surgical HX of: Abdominal Surgery, Appendectomy, Cholecystectomy, Colonoscopy, EGD Reproductive Surgeries: Surgical HX of;: Breast Surgery (Mastectomy), Gynecologic Surgery, Hysterectomy Patient denies;: Genitourinary Surgery Orthopedic Surgeries: Surgical HX of;: Implanted Devices (for scs revision ; MRSA INFECTION 2013 FROM PAIN PUMP), Orthopedic Surgery, Total Knee Replacement (BOTH) - Family History Family History: Reports;: Family Cancer (Mother), Family Diabetes (G'mother), Family Heart Disease (Father), Family Hypertension (Father) - Social History Smoking Status: Never smoker Frequency of Alcohol Use: None Type of Drug Use: None Infectious Disease Exam H&P - Constitutional Vitals: Vital Signs Temp Pulse Resp BP Pulse Ox 97.2 F L 100 H 18 143/73 99 04/09/17 03:45 04/09/17 07:42 04/09/17 07:42 04/09/17 03:45 04/09/17 07:42 Intake and Output 04/08/17 04/09/17 04/09/17 23:59 07:59 15:59 Intake Total 1100 / 1100 Balance 1100 / 1100 Intake: IV 1100 / 1100 Levaquin Inj 500 mg In 100 / 100 Premix 1 Each @ 100 mls/ hr IV Q24H NADIR Rx#: [id number] Ns 1,000 ml @ 20 mls/hr 1000 / 1000 IV .Q24H NADIR Rx#: [id number] Other: Voiding Method Indwelling Catheter Indwelling Catheter # Voids 900 200 # Bowel Movements 0 0 Exam: General: Patient looks ill, she seems quite deconditioned now compared to when I last saw her 2 years ago when she was fully independent, she has a generalized tremor most pronounced on her face HEENT: Mucous membranes pink and moist, anicteric acyanotic, CLAUDIA, no oral exudates Neck: no thyroid gland enlargement, no lymphadenopathy Respiratory system: Breath sounds vesicular, no crepitations or wheezes Cardiovascular: Normal S1 and S2, no murmurs appreciated Abdomen: He has got the right side of abdomen where she had a large wound infected in 2014, normal bowel sounds, obese, tender on palpation, even tender with light touch, no organomegaly or mass appreciated Genitourinary: No suprapubic pain or bladder distention, clear urine from Valle catheter Extremities: Right upper extremity edema however there is no induration no erythema no open wounds. There is a mild bruise to the posterior aspect of the arm proximally but no break in the skin Skin: No rash Reports - Labs CBC & BMP: 04/09/17 04:17 04/09/17 04:17 Labs: Laboratory Results - last 24 hr 04/09/17 04/09/17 04:17 04:17 WBC 11.0 D RBC 3.09 L Hgb 9.6 L Hct 28.6 L MCV 92.6 MCH 31 MCHC 33.6 RDW 13.9 Plt Count 323 MPV 9.4 L Neut % (Auto) 75.7 H Lymph % (Auto) 8.[address] % (Auto) 15.7 H Eos % (Auto) 0.0 Baso % (Auto) 0.2 Neut # (Auto) 8.3 H Lymph # (Auto) 0.[address] # (Auto) 1.7 H Eos # (Auto) 0.0 Baso # (Auto) 0.0 Total Counted 100 Immature Gran % 0.4 Nucleated RBC % 0.0 Immature Gran # 0.04 Segmented Neutrophils 77 Band Neutrophils 1 Lymphocytes 6 L Monocytes 16 H Nucleated RBCs # 0.00 Platelet Estimate Normal Hypochromasia Slight Microcytosis Slight Sodium 135 L Potassium 4.4 Chloride 99 Carbon Dioxide 26 Anion Gap 14.4 BUN 16 Creatinine 0.70 GFR Calculation 102 BUN/Creatinine Ratio 22.00 H Glucose 125 H Calculated Osmolality 271.1 L Calcium 8.6 Phosphorus 4.5 Magnesium 2.1 Total Bilirubin 0.60 AST 35 ALT 31 Alkaline Phosphatase 88 Total Protein 6.5 Albumin 3.4 Globulin 3.1 Albumin/Globulin Ratio 1.0 L - Reports Microbiology: Microbiology 04/07/17 18:04 Blood Culture - Preliminary Blood No growth at 1 day 04/07/17 18:04 Blood Culture - Preliminary Blood No growth at 1 day - Diagnostic Findings Procedure: Chest x-ray: report reviewed by me (No definite pneumonia)
[2017-04-09] MEDS: PANTOPRAZOLE 40 MG TABLET PO SCH (11:39)
[2017-04-09] MEDS: oxyCODONE/ACETAMINOPHEN 5-325 MG TABLET PO SCH ×3 (11:39→21:20)
[2017-04-09] MEDS: CLOPIDOGREL 75 MG TABLET PO SCH (11:39)
[2017-04-09] MEDS: LINACLOTIDE 145 MCG CAPSULE PO SCH (11:39)
[2017-04-09] MEDS: DULoxetine 30 MG CAPSULE PO SCH (11:40)
[2017-04-09] MEDS: ALPRAZolam 0.5 MG TABLET PO SCH ×3 (11:40→21:21)
[2017-04-09] MEDS: OXcarbazepine 300 MG TABLET PO SCH ×2 (11:40→21:20)
[2017-04-09] MEDS ORDERED: HYDROmorphone 2 MG/1 ML VIAL IV PRN (11:47)
[2017-04-09 12:14] VITALS: BP 177/67
--- NOTE | 2017-04-09 15:45 | Discharge Summary ---
Hospital Course - Hospital Course Hospital Course: The patient was admitted to the hospital after a fall at home. She was having various musculoskeletal complaints but was lucid and conversive. I was concerned that the patient had overtaken medications and I reduced the doses of her centrally acting sedatives. The patient became hyperesthetic overnight and began having gibberish speech and shaking of the right upper and lower extremities with extensor posture of the feet and ankles. The patient's chronic pain specialist Dr. 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 The patient has no stroke apparent on her MRI scan and there is no evidence of infection. The patient has been given intravenous Dilaudid without much modulation of her pain level. Because of the shaking I continued her oral Trileptal and added intravenous Keppra. Perhaps the right upper extremity shaking was modulated but it was not extinguished. The patient's son has arrived from [employer] where he is a assistant director of nursing. He requests that we transfer the patient to [facility]. The patient has been accepted at [facility]. - Time spent with patient Time with patient DS: Greater than 30 minutes Diagnosis - Discharge Diagnosis (1) LEATHER STAKER anomaly Status: Acute (2) Fall Status: Acute Discharge Plan - Discharge Data Disposition: Disch/Xfer-[facility] Condition at Discharge: Stable Discharge Diet: regular diet - Discharge Medications New HYDROcodone/ACETAMIN 10-325 [[place] 10-325] 1 tablet PO Q4H PRN tablet PRN Reason: Pain Moderate (4-7) HYDROmorphone INJ [Dilaudid Inj] 1 mg IV Q4H PRN vial PRN Reason: Pain Severe (8-10) levETIRAcetam INJ [Keppra Inj] 1,000 mg IV Q12H vial Levofloxacin Inj [Levaquin Inj] 500 mg IV Q24H Ondansetron Inj [Zofran Inj] 4 mg IV Q4H PRN vial PRN Reason: Nausea Acetaminophen Tab [Tylenol Tab] 325 mg PO Q4H PRN tablet PRN Reason: fever, headache/body aches Albuterol/Ipratropium Neb [Duoneb] 3 ml RESP TX RT Q6H Pantoprazole Tab [Protonix Tab] 40 mg PO DAILY tablet Continue Gabapentin Cap/Tab [Neurontin Cap/Tab] 600 mg PO QID OXcarbazepine [Trileptal] 300 mg PO TID Duloxetine HCl [Cymbalta] 120 mg PO BID Esomeprazole Magnesium [Nexium] 40 mg PO DAILY Methocarbamol Tab [Robaxin Tab] 1,000 mg PO TID PRN PRN Reason: Spasms ALPRAZolam [Xanax] 0.5 mg PO TID Furosemide Tab [Lasix Tab] 40 mg PO BID PRN PRN Reason: Edema Clopidogrel [Plavix] 75 mg PO DAILY Zolpidem [Ambien] 10 mg PO BEDTIME Dicyclomine Cap/Tab [Bentyl Cap/Tab] 10 mg PO QID Tolterodine LA [Detrol LA] 4 mg PO DAILY PRN PRN Reason: Bladder Spasm Losartan Potassium 50 mg PO DAILY rOPINIRole [Requip] 0.5 mg PO BEDTIME PRN PRN Reason: Muscle Spasm Atorvastatin [Lipitor] 10 mg PO DAILY Cyanocobalamin Inj [Vitamin B12 Inj] 1,000 mcg IM Q30D Levothyroxine Tab [Synthroid Tab] 137 mcg PO DAILY@0700 Linaclotide [Linzess] 290 mcg PO DAILY Mv,Iron,Mins/Folic Acid/Biotin [Hair Formula Tablet] 1 each PO DAILY Meclizine HCl 25 mg PO TID PRN PRN Reason: Dizziness Promethazine HCl 25 mg PO DAILY PRN PRN Reason: Nausea oxyCODONE/ACETAMINOPHEN 5-325 [Percocet 5-325] 2 tablet PO TID fentaNYL [Fentanyl 75 mcg/hr Patch] 1 patch TRANSDERM Q3DAY - Follow Up or Referral - Forms/Instructions Exam - Constitutional Vitals: Period Temp Pulse Resp BP Sys/Avery Pulse Ox Last 24 Hr 96.7 F-98.7 F 90-132 18-20 143-177/67-83 97-100 Discharge Results Procedures and tests throughout hospitalization: Pending Orders 04/07/17 18:04 Blood Culture Stat 04/10/17 04:00 BMP w/ Mg [Basic Metabolic Panel w/Mg] IN AM Comp Blood Count Auto Diff IN AM Labs on day of discharge: Labs from last 24 hours 04/09/17 04/09/17 04:17 04:17 WBC 11.0 D RBC 3.09 L Hgb 9.6 L Hct 28.6 L MCV 92.6 MCH 31 MCHC 33.6 RDW 13.9 Plt Count 323 MPV 9.4 L Neut % (Auto) 75.7 H Lymph % (Auto) 8.0 L [place] % (Auto) 15.7 H Eos % (Auto) 0.0 Baso % (Auto) 0.2 Neut # (Auto) 8.3 H Lymph # (Auto) 0.9 L [place] # (Auto) 1.7 H Eos # (Auto) 0.0 Baso # (Auto) 0.0 Total Counted 100 Immature Gran % 0.4 Nucleated RBC % 0.0 Immature Gran # 0.04 Segmented Neutrophils 77 Band Neutrophils 1 Lymphocytes 6 L Monocytes 16 H Nucleated RBCs # 0.00 Platelet Estimate Normal Hypochromasia Slight Microcytosis Slight Sodium 135 L Potassium 4.4 Chloride 99 Carbon Dioxide 26 Anion Gap 14.4 BUN 16 Creatinine 0.70 GFR Calculation 102 BUN/Creatinine Ratio 22.00 H Glucose 125 H Calculated Osmolality 271.1 L Calcium 8.6 Phosphorus 4.5 Magnesium 2.1 Total Bilirubin 0.60 AST 35 ALT 31 Alkaline Phosphatase 88 Total Protein 6.5 Albumin 3.4 Globulin 3.1 Albumin/Globulin Ratio 1.0 L Preliminary micro results at discharge 04/07/17 18:04 Blood Culture - Preliminary Blood No growth at 1 day 04/07/17 18:04 Blood Culture - Preliminary Blood No growth at 1 day DS: Provider Date of admission: 04/07/17 18:10 Primary care physician: Sharri Vivas Attending physician on admission: Christin Ovalle MD Consults: 04/07/17 19:25 Consult to Physical Therapy [CONS] Routine Reason for Physical Therapy: Evaluate and Treat 04/07/17 20:45 Consult to Pastoral Services [CONS] Routine Comment: Pastoral Screen: Request Epitaxial Reactor Operator Visit Pastoral Screen Source of Request: Patient 04/08/17 09:23 Consult to Occupational Therapy [CONS] Routine Reason for Occupational Therapy: Evaluate and Treat 04/08/17 14:57 Consult to Physician [CONS] Routine Comment: exacerbation of pain Consulting Provider: Marko Mcconnell Person Notified: Negar Date Notified: 04/08/17 Time Notified: 15:50 04/08/17 18:11 Consult to Physician [CONS] Routine Comment: patient with history of device infection Consulting Provider: Olga Lidia Parks Person Notified: DONNA Date Notified: 04/09/17 Time Notified: 09:36 Consult Notification Comment: 04/09/17 09:16 Consult to Physician [CONS] Routine Comment: shaking and delerium Consulting Provider: Timothy Ortiz Date Notified: 04/09/17 Time Notified: 09:46 Consult Notification Comment: RON STATED HE WAS ON BYPASS UNTIL APRIL 19 Discharging clinician: Brian Vázquez MD
[2017-04-09] MEDS: LEVOFLOXACIN INJ 500 MG in PREMIX 1 EACH IV SCH (21:21)
[2017-04-09] MEDS: ZALEPLON 5 MG CAPSULE PO SCH (21:21)
--- NOTE | 2017-04-28 18:18 | Electroencephalogram ---
HISTORY: A 72-year-old female with a history of right-sided shaking. INTRODUCTION: A digital EEG was performed using the standard 10/20 system of electrode placement wit h one channel of EKG monitoring. Photic stimulation was performed. DESCRIPTION OF RECORD: The background is very disorganized, consists of 5 to 6 hertz high amplitude bilateral symmetrical rhythm. Photic stimulation does not elicit a driving response. There are no s harp wave, spike, or wave activity seen. Heart rate 80 beats per minute. IMPRESSIONS: ABNORMAL EEG DUE TO GENERALIZED SLOWING. CLINICAL CORRELATION: This record is supportive of moderate to severe encephalopathy which could be secondary to postictal state, post-hypoxic state, metabolic disorder, diffuse MANAGER FIXED INCOME insult or increased intracranial pressure. No epileptiform/seizure activity seen. Clinical correlation is suggested.
== END 2017-04-09 17:34 | disposition hospice, home (50) | DRG 93 ==
LOC: N.ED 15:08 → SUATTDRO 18:10 → N.EDINP 18:10 → N.5E 19:17
PROVIDERS: ADMIT Family Medicine; ATTEND Internal Medicine Nephrology

== ENCOUNTER 2017-10-31 14:26 | Inpatient (IN) ==
[2017-10-31] MEDS ORDERED: ONDANSETRON 4 MG/2 ML VIAL IV STA (14:51)
[2017-10-31] MEDS ORDERED: MECLIZINE 25 MG TABLET PO STA (14:51)
[2017-10-31] MEDS ORDERED: METOCLOPRAMIDE 10 MG/2 ML VIAL IV STA (14:51)
[2017-10-31 15:09] LABS: Basophils % 0.6 % (0.0-0.8); Eosinophils # 0.2 10*3/uL (0.0-0.87); Hematocrit 29.4 VOL% (35.7-47.0); Hemoglobin 10.1 GM/DL (12.0-16.0); Immature Granulocytes % 0.4 %; Immature Granulocytes Absolute 0.02 #; Lymphocytes # 0.9 10*3/uL (1.4-4.0); Lymphocytes % 16.6 % (21.3-54.2); Mean Corpuscular HGB Conc 34.4 GM/DL (32-36); Mean Corpuscular Hemoglobin 32 PG (27-34); Mean Corpuscular Volume 92.5 FL (87-102); Mean Platelet Volume 9.6 FL (9.6-12.0); Monocytes # 0.7 10*3/uL (0.11-0.8); Monocytes % 12.9 % (1.7-12.7); Neutrophils # 3.6 10*3/uL (1.4-7.4); Neutrophils % 66.5 % (38.7-73.9); Platelet Count 334 T/CUMM (130-400); Red Blood Count 3.18 MC/CUMM (3.8-5.5); White Blood Count 5.4 T/CUMM (4-12)
[2017-10-31] MEDS ORDERED: ONDANSETRON 4 MG/2 ML VIAL ONE (15:12)
[2017-10-31] MEDS ORDERED: METOCLOPRAMIDE 10 MG/2 ML VIAL ONE (15:12)
[2017-10-31] MEDS ORDERED: MECLIZINE 25 MG TABLET ONE (15:12)
[2017-10-31 15:20] LABS: Apearance,Urine CLEAR (Clear); Bacteria,Urine Occasional /HPF (Few); Bilirubin,Urine Negative (Negative); Blood, Urine Negative (Negative); Glucose,Urine (UA) Negative (Negative); Ketones,Urine Negative (Negative); Mucus,Urine Occasional /LPF (Occasional); Nitrite,Urine Negative (Negative); Protein,Urine Negative; RBC,Urine 1 /HPF (0-4); Urine Color Yellow (Yellow); Urine Specific Gravity 1.014 (1.001-1.035); Urine Urobilinogen < 2.0 EU/DL (0.2-1.0); WBC,Urine <1 /HPF (0-6)
[2017-10-31 16:14] LABS: Alanine Aminotransferase 18 U/L (13-56); Albumin 3.4 G/DL (3.4-5.0); Alkaline Phosphatase 101 U/L (45-117); Aspartate Amino Transferase 17 U/L (0-37); Bilirubin,Total < 0.39 MG/DL (0.2-1.0); Blood Urea Nitrogen 12 MG/DL (7-18); Calcium 8.4 MG/DL (8.5-10.1); Glucose 85 MG/DL (74-106); Osmolality,Calculated 255.1 MOS/KG (273-304); Potassium 3.9 MMOL/L (3.5-5.1); Sodium 128 MMOL/L (136-145); Total Protein 6.2 G/DL (6.4-8.3); Troponin I Only < 0.015 NG/ML (0.00-0.045)
[2017-10-31] MEDS ORDERED: ACETAMINOPHEN 325 MG TABLET PO PRN (18:25)
[2017-10-31] MEDS ORDERED: ONDANSETRON 4 MG/2 ML VIAL IV PRN (18:25)
[2017-10-31] MEDS: SODIUM CHLORIDE 0.9% 1,000 ML IV SCH (19:49)
[2017-10-31 22:45] LABS: Troponin I Only 0.016 NG/ML (0.00-0.045)
[2017-11-01 06:23] LABS: Eosinophils # 0.3 10*3/uL (0.0-0.87); Eosinophils % 5.9 % (0.00-10.9); Hematocrit 29.8 VOL% (35.7-47.0); Hemoglobin 9.9 GM/DL (12.0-16.0); Immature Granulocytes % 0.5 %; Immature Granulocytes Absolute 0.02 #; Lymphocytes # 0.9 10*3/uL (1.4-4.0); Lymphocytes % 21.4 % (21.3-54.2); Mean Corpuscular HGB Conc 33.2 GM/DL (32-36); Mean Corpuscular Hemoglobin 31 PG (27-34); Mean Corpuscular Volume 93.7 FL (87-102); Mean Platelet Volume 9.8 FL (9.6-12.0); Monocytes # 0.7 10*3/uL (0.11-0.8); Monocytes % 15.7 % (1.7-12.7); Neutrophils # 2.3 10*3/uL (1.4-7.4); Neutrophils % 55.5 % (38.7-73.9); Platelet Count 317 T/CUMM (130-400); Red Blood Count 3.18 MC/CUMM (3.8-5.5); Red Cell Distribution Width 13.9 % (9.3-17.3); White Blood Count 4.2 T/CUMM (4-12)
[2017-11-01 06:41] LABS: Calcium 8.1 MG/DL (8.5-10.1); Osmolality,Calculated 262.4 MOS/KG (273-304); Potassium 3.9 MMOL/L (3.5-5.1)
[2017-11-01 06:46] LABS: Troponin I Only < 0.015 NG/ML (0.00-0.045)
[2017-11-01] MEDS: SODIUM CHLORIDE 0.9% 1,000 ML IV SCH ×2 (06:50→23:41)
[2017-11-01 06:52] LABS: Burr Cells Slight; Eosinophils 6 % (0-10); Hypochromasia 1+; Lymphocytes 28 % (20-55); Ovalocytes Slight; Platelet Estimate Adequate; Segmented Neutrophils 52 % (50-85); Total Cells Counted 100
[2017-11-01] MEDS ORDERED: PANTOPRAZOLE 40 MG TABLET PO SCH (09:00)
[2017-11-01] MEDS: LOSARTAN 50 MG TABLET PO SCH (09:56)
[2017-11-01] MEDS: CLOPIDOGREL 75 MG TABLET PO SCH (09:56)
[2017-11-01] MEDS: ASPIRIN EC 81 MG TABLET PO SCH (09:57)
[2017-11-01] MEDS ORDERED: MAGNESIUM SULF RIDER 2 GM in PREMIX 1 EACH IV PRN (10:59)
[2017-11-01] MEDS ORDERED: DIAZEPAM 5 MG TABLET PO ONE (10:59)
[2017-11-01] MEDS ORDERED: diphenhydrAMINE CAP 25 MG CAPSULE PO ONE (10:59)
[2017-11-01] MEDS ORDERED: POTASSIUM CHLORIDE RIDER 10 MEQ in PREMIX 1 EACH IV PRN (10:59)
[2017-11-01] MEDS ORDERED: methylPREDNISolone SOD SUC 125 MG/2 ML VIAL IV ONE (11:00)
[2017-11-01] MEDS ORDERED: LIDOCAINE 1% 20 ML VIAL ONE (13:31)
[2017-11-01] MEDS ORDERED: MIDAZOLAM 2 MG/2 ML VIAL ONE ×2 (14:04→14:16)
[2017-11-01] MEDS ORDERED: fentaNYL 100 MCG/2 ML VIAL ONE (14:05)
[2017-11-01] MEDS ORDERED: diphenhydrAMINE 50 MG/1 ML VIAL ONE (14:12)
[2017-11-01] MEDS ORDERED: HYDROmorphone 2 MG/1 ML VIAL ONE (14:19)
[2017-11-01] MEDS ORDERED: rOPINIRole 1 MG TABLET PO PRN ×2 (14:20→14:27)
[2017-11-01] MEDS ORDERED: FUROSEMIDE 40 MG TABLET PO PRN (14:20)
[2017-11-01] MEDS ORDERED: TOLTERODINE LA 4 MG CAPSULE PO PRN (14:20)
[2017-11-01] MEDS ORDERED: MECLIZINE 25 MG TABLET PO PRN (14:20)
[2017-11-01] MEDS: OXcarbazepine 300 MG TABLET PO SCH ×2 (17:39→21:38)
[2017-11-01] MEDS: GABAPENTIN 100 MG CAPSULE PO SCH ×2 (17:39→21:38)
[2017-11-01] MEDS: METHOCARBAMOL 500 MG TABLET PO SCH (21:38)
[2017-11-01] MEDS: oxyCODONE/ACETAMINOPHEN 5-325 MG TABLET PO SCH (21:38)
[2017-11-01] MEDS: ATORVASTATIN 10 MG TABLET PO SCH (21:38)
[2017-11-01] MEDS: LINACLOTIDE 145 MCG CAPSULE PO SCH (23:39)
[2017-11-02] MEDS: ALPRAZolam 0.5 MG TABLET PO SCH ×2 (01:58→20:22)
[2017-11-02] MEDS: LEVOTHYROXINE 137 MCG TABLET PO SCH (06:10)
[2017-11-02 07:22] LABS: Basophils % 0.3 % (0.0-0.8); Eosinophils # 0.1 10*3/uL (0.0-0.87); Eosinophils % 0.8 % (0.00-10.9); Hematocrit 30.2 VOL% (35.7-47.0); Hemoglobin 9.9 GM/DL (12.0-16.0); Immature Granulocytes % 0.4 %; Immature Granulocytes Absolute 0.03 #; Lymphocytes # 1.2 10*3/uL (1.4-4.0); Lymphocytes % 15.4 % (21.3-54.2); Mean Corpuscular HGB Conc 32.8 GM/DL (32-36); Mean Corpuscular Hemoglobin 31 PG (27-34); Mean Corpuscular Volume 94.7 FL (87-102); Mean Platelet Volume 10.1 FL (9.6-12.0); Monocytes # 0.9 10*3/uL (0.11-0.8); Monocytes % 12.1 % (1.7-12.7); Neutrophils # 5.5 10*3/uL (1.4-7.4); Platelet Count 348 T/CUMM (130-400); Red Blood Count 3.19 MC/CUMM (3.8-5.5); Red Cell Distribution Width 14.3 % (9.3-17.3); White Blood Count 7.8 T/CUMM (4-12)
[2017-11-02 07:49] LABS: Calcium 8.6 MG/DL (8.5-10.1); Magnesium 2.1 MG/DL (1.8-2.4); Potassium 3.7 MMOL/L (3.5-5.1)
[2017-11-02 07:51] LABS: Risk Ratio 2.33; VLDL CHOLESTEROL 9.6 MG/DL
[2017-11-02] MEDS: ASPIRIN EC 81 MG TABLET PO SCH (08:34)
[2017-11-02] MEDS: LOSARTAN 50 MG TABLET PO SCH (08:34)
[2017-11-02] MEDS: CLOPIDOGREL 75 MG TABLET PO SCH (08:34)
[2017-11-02] MEDS: OXcarbazepine 300 MG TABLET PO SCH ×3 (08:34→20:22)
[2017-11-02] MEDS: PANTOPRAZOLE 40 MG TABLET PO SCH (08:34)
[2017-11-02] MEDS: METHOCARBAMOL 500 MG TABLET PO SCH (08:34)
[2017-11-02] MEDS: GABAPENTIN 100 MG CAPSULE PO SCH ×3 (08:34→20:21)
[2017-11-02] MEDS: oxyCODONE/ACETAMINOPHEN 5-325 MG TABLET PO SCH ×2 (08:35→20:22)
[2017-11-02] MEDS: SODIUM CHLORIDE 0.9% 1,000 ML IV SCH (11:42)
[2017-11-02] MEDS ORDERED: ALUMINUM/MAGNES/SIMETH MAX STR 30 ML UDCUP PO PRN (12:59)
[2017-11-02] MEDS: ATORVASTATIN 10 MG TABLET PO SCH (20:22)
[2017-11-02] MEDS: LINACLOTIDE 145 MCG CAPSULE PO SCH (20:23)
[2017-11-03] MEDS: LEVOTHYROXINE 137 MCG TABLET PO SCH (06:34)
[2017-11-03 06:51] LABS: Basophils # 0.1 10*3/uL (0.0-0.2); Basophils % 0.6 % (0.0-0.8); Eosinophils # 0.2 10*3/uL (0.0-0.87); Eosinophils % 2.3 % (0.00-10.9); Hematocrit 31.1 VOL% (35.7-47.0); Hemoglobin 10.5 GM/DL (12.0-16.0); Immature Granulocytes % 0.4 %; Immature Granulocytes Absolute 0.03 #; Lymphocytes # 1.1 10*3/uL (1.4-4.0); Lymphocytes % 14.1 % (21.3-54.2); Mean Corpuscular HGB Conc 33.8 GM/DL (32-36); Mean Corpuscular Hemoglobin 32 PG (27-34); Mean Corpuscular Volume 93.4 FL (87-102); Mean Platelet Volume 9.7 FL (9.6-12.0); Monocytes # 0.8 10*3/uL (0.11-0.8); Monocytes % 9.9 % (1.7-12.7); Neutrophils # 5.8 10*3/uL (1.4-7.4); Neutrophils % 72.7 % (38.7-73.9); Platelet Count 359 T/CUMM (130-400); Red Blood Count 3.33 MC/CUMM (3.8-5.5); Red Cell Distribution Width 14.3 % (9.3-17.3)
[2017-11-03 07:23] LABS: Calcium 8.7 MG/DL (8.5-10.1); Magnesium 2.1 MG/DL (1.8-2.4); Osmolality,Calculated 277.4 MOS/KG (273-304); Potassium 3.7 MMOL/L (3.5-5.1)
[2017-11-03] MEDS: GABAPENTIN 100 MG CAPSULE PO SCH (09:16)
[2017-11-03] MEDS: LOSARTAN 50 MG TABLET PO SCH (09:16)
[2017-11-03] MEDS: ASPIRIN EC 81 MG TABLET PO SCH (09:16)
[2017-11-03] MEDS: OXcarbazepine 300 MG TABLET PO SCH (09:17)
[2017-11-03] MEDS: PANTOPRAZOLE 40 MG TABLET PO SCH (09:17)
[2017-11-03] MEDS: oxyCODONE/ACETAMINOPHEN 5-325 MG TABLET PO SCH (09:17)
[2017-11-03] MEDS: CLOPIDOGREL 75 MG TABLET PO SCH (09:17)
[2017-11-03 12:48] VITALS: BP 139/73
[2017-11-04] MEDS ORDERED: fentaNYL 75 MCG/HR PATCH TRANSDERM SCH (09:00)
[2017-11-05] MEDS ORDERED: fentaNYL 50 MCG/HR PATCH TRANSDERM SCH (09:00)
== END 2017-11-03 14:33 | disposition home or self-care (01) | DRG 286 ==
LOC: N.ED 14:26 → N.EDINP 16:51 → SUATTDRO 16:51 → N.5E 17:41
PROVIDERS: ADMIT Internal Medicine; ATTEND Internal Medicine
PROC: CLCCHCL (ICD-10-PCS; 2017-11-01 13:45)

== ENCOUNTER 2019-05-21 10:31 | Observation (INO) ==
[2019-05-21] MEDS ORDERED: SODIUM CHLORIDE 0.9% 1,000 ML IV STA (11:18)
[2019-05-21 11:22] LABS: Basophils % 0.4 % (0.0-0.8); Eosinophils # 0.1 10*3/uL (0.0-0.87); Eosinophils % 2.3 % (0.00-10.9); Hematocrit 33.2 VOL% (35.7-47.0); Immature Granulocytes % 0.8 %; Immature Granulocytes Absolute 0.04 #; Lymphocytes # 0.6 10*3/uL (1.4-4.0); Mean Corpuscular HGB Conc 33.1 GM/DL (32-36); Mean Corpuscular Volume 93.8 FL (87-102); Mean Platelet Volume 9.3 FL (9.6-12.0); Monocytes % 10.8 % (1.7-12.7); Neutrophils % 72.7 % (38.7-73.9); Platelet Count 295 T/CUMM (130-400); Red Blood Count 3.54 MC/CUMM (3.8-5.5); Red Cell Distribution Width 12.1 % (9.3-17.3); White Blood Count 4.7 T/CUMM (4-12)
[2019-05-21 11:32] LABS: Albumin 3.6 G/DL (3.4-5.0); Bilirubin,Total 0.4 MG/DL (0.2-1.0); Calcium 8.6 MG/DL (8.5-10.1); Osmolality,Calculated 254.2 MOS/KG (273-304); Total Protein 6.4 G/DL (6.4-8.3)
[2019-05-21 11:34] LABS: PT Patient Result 10.7 SECS; Partial Thromboplastin Time 28.5 SECS (0-40); Troponin I < 0.015 NG/ML (0.00-0.045)
[2019-05-21 11:46] LABS: Free T4 (Free Thyroxine) 0.86 NG/DL (0.76-1.46); Thyroid Stimulating Hormone 0.547 uIU/ml (0.358-3.74)
[2019-05-21 11:53] LABS: Apearance,Urine CLEAR (Clear); Bilirubin,Urine Negative (Negative); Blood, Urine Small mg/dL (Negative); Glucose,Urine (UA) Negative (Negative); Ketones,Urine Negative (Negative); Mucus,Urine Occasional /LPF (Occasional); Nitrite,Urine Negative (Negative); Protein,Urine Negative; RBC,Urine 2 /HPF (0-4); Squamous Epithelial Cell,Urine Occasional /HPF (0-10); Urine Color Yellow (Yellow); Urine Specific Gravity 1.011 (1.001-1.035); Urine Urobilinogen < 2.0 EU/DL (0.2-1.0); WBC,Urine 1 /HPF (0-6)
[2019-05-21] MEDS ORDERED: ONDANSETRON 4 MG/2 ML VIAL IV PRN (14:26)
[2019-05-21] MEDS ORDERED: ACETAMINOPHEN 325 MG TABLET PO PRN (14:26)
[2019-05-21] MEDS ORDERED: MECLIZINE 25 MG TABLET PO PRN (14:32)
[2019-05-21] MEDS ORDERED: TOLTERODINE LA 4 MG CAPSULE PO PRN (14:32)
[2019-05-21] MEDS ORDERED: MAGNESIUM SULF RIDER 4 GM in PREMIX 1 EACH IV PRN (14:32)
[2019-05-21] MEDS ORDERED: FUROSEMIDE 40 MG TABLET PO PRN (14:32)
[2019-05-21] MEDS ORDERED: LINACLOTIDE 145 MCG CAPSULE PO PRN (14:32)
[2019-05-21] MEDS ORDERED: ALBUTEROL 2.5 MG/3 ML NEB RESP TX PRN (14:32)
[2019-05-21] MEDS ORDERED: MAGNESIUM SULF RIDER 2 GM in PREMIX 1 EACH IV PRN (14:32)
[2019-05-21] MEDS ORDERED: ONDANSETRON 4 MG TABLET PO PRN (14:32)
[2019-05-21] MEDS ORDERED: CYANOCOBALAMIN 1000 MCG/1 ML VIAL IM SCH (15:00)
[2019-05-21] MEDS: SODIUM CHLORIDE 0.9% 1,000 ML IV SCH (15:45)
[2019-05-21] MEDS: ENOXAPARIN 40 MG/0.4 ML SYRINGE SUBCUT SCH (15:47)
[2019-05-21] MEDS: DICYCLOMINE 10 MG CAPSULE PO SCH ×2 (16:56→22:23)
[2019-05-21] MEDS: GABAPENTIN 400 MG CAPSULE PO SCH (22:24)
[2019-05-21] MEDS: busPIRone 10 MG TABLET PO SCH (22:24)
[2019-05-21] MEDS: DULoxetine 30 MG CAPSULE PO SCH (22:25)
[2019-05-21 22:59] LABS: Calcium 7.5 MG/DL (8.5-10.1); Osmolality,Calculated 257.9 MOS/KG (273-304)
[2019-05-21] MEDS ORDERED: rOPINIRole 0.25 MG TABLET PO PRN (23:43)
[2019-05-22] MEDS: SODIUM CHLORIDE 0.9% 1,000 ML IV SCH (00:40)
[2019-05-22 05:52] LABS: Basophils % 0.4 % (0.0-0.8); Eosinophils # 0.1 10*3/uL (0.0-0.87); Eosinophils % 1.5 % (0.00-10.9); Hematocrit 30.2 VOL% (35.7-47.0); Hemoglobin 10.2 GM/DL (12.0-16.0); Immature Granulocytes % 0.4 %; Immature Granulocytes Absolute 0.02 #; Lymphocytes % 18.2 % (21.3-54.2); Mean Corpuscular HGB Conc 33.8 GM/DL (32-36); Mean Corpuscular Volume 93.2 FL (87-102); Mean Platelet Volume 9.6 FL (9.6-12.0); Monocytes % 13.2 % (1.7-12.7); Neutrophils % 66.3 % (38.7-73.9); Platelet Count 275 T/CUMM (130-400); Red Blood Count 3.24 MC/CUMM (3.8-5.5); Red Cell Distribution Width 12.2 % (9.3-17.3); White Blood Count 5.2 T/CUMM (4-12)
[2019-05-22 06:01] LABS: Calcium 8.1 MG/DL (8.5-10.1); Osmolality,Calculated 261.7 MOS/KG (273-304); Risk Ratio 2.12; VLDL CHOLESTEROL 10.2 MG/DL
[2019-05-22] MEDS ORDERED: LEVOTHYROXINE 125 MCG TABLET PO SCH (07:00)
[2019-05-22 07:52] VITALS: BP 125/67
[2019-05-22] MEDS: ENOXAPARIN 40 MG/0.4 ML SYRINGE SUBCUT SCH (08:03)
[2019-05-22] MEDS: DICYCLOMINE 10 MG CAPSULE PO SCH (08:03)
[2019-05-22] MEDS: busPIRone 10 MG TABLET PO SCH (08:03)
[2019-05-22] MEDS: DULoxetine 30 MG CAPSULE PO SCH (08:04)
[2019-05-22] MEDS: GABAPENTIN 400 MG CAPSULE PO SCH (08:04)
[2019-05-22] MEDS ORDERED: CLOPIDOGREL 75 MG TABLET PO SCH (09:00)
[2019-05-22] MEDS ORDERED: PANTOPRAZOLE 40 MG TABLET PO SCH (09:00)
[2019-05-22] MEDS ORDERED: ASPIRIN EC 81 MG TABLET PO SCH (09:00)
[2019-05-22] MEDS ORDERED: OXCARBAZEPINE 600 MG PO SCH (09:00)
[2019-05-22] MEDS ORDERED: ATORVASTATIN 10 MG TABLET PO SCH (09:00)
[2019-05-22] MEDS ORDERED: HEPARIN LOCK FLUSH 500 UNIT/5 ML SYRINGE IV PRN (10:31)
[2019-05-22] MEDS ORDERED: HEPARIN LOCK FLUSH 500 UNIT/5 ML SYRINGE IV SCH (21:00)
== END 2019-05-22 10:46 | disposition home or self-care (01) ==
LOC: EDUNIT# → EDBD → N.ED 10:31 → N.2E 10:31
PROVIDERS: ADMIT Family Medicine; ATTEND Family Medicine